=== PATIENT | male | born 1965 | race African-American/Black ===

== ENCOUNTER 2019-04-07 10:50 | Emergency (ER) | payer OTHER ==
[~2019-04-07] VITALS: Ht 180.3 cm; Wt 90.7 kg
[~2019-04-07 10:50] MED LIST: ATACAND4 MG; IBUPROFEN800 MG PO; NORFLEX100MG PO
== END 2019-04-07 15:26 | disposition home or self-care (01) ==
LOC: ER 10:50
DX: J11.1 Influenza due to unidentified influenza virus with other respiratory manifestations (principal)

== ENCOUNTER 2019-04-13 21:15 | Emergency (ER) | payer OTHER ==
[~2019-04-13] VITALS: Ht 180.3 cm; Wt 90.7 kg
[2019-04-14] MEDS ORDERED: XOFLUZA40 MG PO (01:25)
[2019-04-14] MEDS ORDERED: PROMETH-CODEIN 65 ML PO (01:27)
== END 2019-04-14 01:32 | disposition home or self-care (01) ==
LOC: ER 21:15
DX: J11.1 Influenza due to unidentified influenza virus with other respiratory manifestations (principal)

== ENCOUNTER → 2019-04-20 | Emergency (ER) | payer OTHER ==
[~2019-04-20] MED LIST changes: +PROMETH-CODEIN 65 ML PO; +XOFLUZA40 MG PO
== END | disposition left against medical advice (07) ==
LOC: ER 12:43
DX: Z53.20 Procedure and treatment not carried out because of patient's decision for unspecified reasons (principal)

== ENCOUNTER 2019-08-16 20:13 | Emergency (ER) | payer OTHER ==
[~2019-08-16] VITALS: Ht 180.3 cm; Wt 90.7 kg
[2019-08-16] MEDS ORDERED: ATACAND4 MG PO (20:28)
== END 2019-08-16 23:27 | disposition home or self-care (01) ==
LOC: ER 20:13
DX: B02.8 Zoster with other complications (principal)

== ENCOUNTER 2021-02-04 13:12 | Emergency (ER) | payer OTHER ==
[~2021-02-04] VITALS: Ht 180.3 cm; Wt 90.7 kg
[~2021-02-04 13:12] MED LIST changes: +ATACAND4 MG PO
== END 2021-02-04 14:06 | disposition home or self-care (01) ==
LOC: ER 13:12
DX: R21 Rash and other nonspecific skin eruption (principal)